=== PATIENT | male | born 1985 | race Caucasian/White ===

== ENCOUNTER 2024-01-04 05:49 | Inpatient (IN) | payer BC, SELFPAY ==
[2024-01-04] VITALS (10 sets, daily range): BP systolic 127–163; BP diastolic 89–108; BMI 19.5; BMI 19.0
[2024-01-04 03:10] LABS: % Basophils 0.5 % (0-2); % Eosinophils 2.6 % (0-6); % Immature Granulocytes 0.4 % (0-0.5); % Lymphocytes 45.8 % (20.5-51.1); % Monocytes 4.6 % (1.7-9.3); % Neutrophils 46.1 % (42.2-75.2); Absolute Eosinophils 0.2 10^3/uL (0-0.7); Absolute Lymphocytes 3.9 10^3/uL (1.2-3.4); Absolute Monocytes 0.4 10^3/uL (0.1-0.6); Absolute Neutrophils 3.9 10^3/uL (1.4-6.5); Hematocrit 42.3 % (39.0-52.0); Hemoglobin 14.9 g/dL (13.0-18.0); Mean Corp Hgb Conc. 35.2 g/dL (33.0-37.0); Mean Corpuscular Hgb 30.6 pg (27.0-31.0); Mean Corpuscular Volume 86.9 fL (80.0-94.0); Mean Platelet Volume 11.4 fL (7.4-10.4); Nucleated Red Blood Cells % 0 % (-); Platelet Count 240 10^3/uL (130-400); Red Blood Cell Count 4.87 10^6/uL (4.70-6.10); Red Cell Dist. Width 12.3 % (11.5-14.5); White Blood Cell Count 8.5 10^3/uL (4.8-10.8)
[2024-01-04 03:25] LABS: ALT (SGPT) 26 U/L (0-50); AST (SGOT) 28 U/L (17-59); Albumin 4.9 g/dl (3.5-5.0); Alkaline Phosphatase 56 U/L (38-126); Blood Urea Nitrogen 12 mg/dl (9-20); Calcium 9.2 mg/dl (8.4-10.2); Carbon Dioxide 24 mmol/L (22-30); Chloride 106 mmol/L (98-107); Estimated Creatinine Clearance 112 ml/min; Glucose 185 mg/dl (70-99); Potassium 3.7 mmol/L (3.5-5.1); Sodium 143 mmol/L (135-145); Total Bilirubin 0.6 mg/dl (0.2-1.3); Total Protein 7.7 g/dl (6.3-8.2); eGFR > 60.00
--- NOTE | 2024-01-04 03:31 | ED.GENMED ---
History of Present Illness
General
Chief Complaint: Abdominal Pain
Time Seen by Provider: 01/04/24 03:01
History of Present Illness
History of Present Illness:
38-year-old male without significant past medical history presenting for acute onset of abdominal pain. Patient reports symptoms started prior to arrival while he was sleeping. Reports associated nausea and vomiting. Pain is diffuse in nature.
Denies any changes in stool. Reports that he was drinking last night about 6 beers. Denies any associated chest pain or difficulty breathing. Denies any extensive alcohol abuse. Denies any abdominal surgeries. Denies any fever or sick contacts.
Denies additional acute medical complaints
Phy Exam
Physical Exam
Physical Exam:
General: Well-appearing, no clinical signs of dehydration, nontoxic and in no acute distress
HEENT: protecting airway
Neck: appears supple
CV: Normal heart rate, regular rhythm, no evidence of cyanosis
Resp: No accessory muscle use, no increased work of breathing, lungs clear to auscultation bilaterally
Abd: Soft and non-distended, no focal reproducible tenderness
Extremities: No deformities, no swelling, no erythema
Neuro: alert, no focal neurologic deficit
: deferred
Rectal: deferred
Psych: Normal affect
Skin: Intact
Course
Orders/Labs/Results
Orders:
Orders
01/04/24 02:54
Electrocardiogram (*1) Urgent
Reason for Study: Abdominal Pain
EKG- Treatment ONCE
IV Insert/Care/Rem.- Treatment PRN
01/04/24 03:01
Complete Blood Count/With Diff Urgent
Comprehensive Metabolic Panel Urgent
Lipase Urgent
01/04/24 03:09
0.9% Sodium Chloride 1000 ml [Nss] 1,000 ml IV BOLUS
Ketorolac [Toradol] 15 mg IV NOW STA
Ondansetron Injectable [Zofran] 4 mg IV NOW STA
01/04/24 03:10
CT Abd/pelvis W Iv Cont Urgent
Comment:
Reason For Exam: generalized pain, vomiting
01/04/24 03:43
Morphine Sulfate 4 mg IV NOW STA
01/04/24 04:47
US Abdomen Limited Urgent
Comment:
Reason For Exam: RUQ, pancreatitis, gallstones
Abnormal Lab Results
01/04/24
03:01
MPV 11.4 H fL
(7.4-10.4)
Absolute Lymphs (auto) 3.9 H 10^3/uL
(1.2-3.4)
Glucose 185 H mg/dl
(70-99)
Lipase > 4000 H* U/L
(23-300)
01/04/24 03:01
01/04/24 03:01
Vital Signs
Initial and Last Documented VS:
Initial Vital Signs
Temp Pulse Resp BP Pulse Ox
97.7 F 109 12 163/108 95
01/04/24 02:53 01/04/24 02:53 01/04/24 02:53 01/04/24 02:53 01/04/24 02:53
Last Documented Vital Signs
Temp Pulse Resp BP Pulse Ox
97.7 F 109 13 143/102 96
01/04/24 02:53 01/04/24 03:30 01/04/24 03:30 01/04/24 03:00 01/04/24 03:30
MDM/Problems Addressed
MDM/Problems Addressed:
38-year-old male presenting for acute onset of generalized abdominal pain. Vital signs significant for tachycardia and hypertension.
On exam, patient is in no acute distress, however uncomfortable secondary to pain. On examination, no focal reproducible tenderness. Possible enteritis versus pancreatitis with report of alcohol last evening. Given acute onset of symptoms and
patient's discomfort, plan for laboratory analysis and CT abdomen imaging. Patient had received fentanyl prior to arrival by medics. Will administer Toradol, fluids, Zofran.
03:45 - Patient is still uncomfortable, will administer morphine.
04:50 -pain is better controlled. Lipase greater than 4000. CT shows acute edematous pancreatitis without necrosis or fluid collection. There is also evidence of cholelithiasis. No leukocytosis. No elevation of liver enzymes. Will obtain
ultrasound imaging to ensure no acute cholecystitis. However continue to suspect from alcohol. Plan for admission.
*Critical Care Note
Total Time (30-74mins, 75-104mins- exclusive of procedures): Not Applicable
ED Attending Note
-
Portions of this chart may have been created with voice recognition software.� Occasional wrong word or��sound alike� substitutions may have occurred due to the inherent limitations of voice recognition software.
Discharge Plan
Departure
Prescriptions:
No Action
No Current Medications
0
Referrals:
PRIVATE,PHYSICIAN [Family Provider] -
Interventions
Interventions:
*Risk Screen - Suicide Last Done: 01/04/24 02:53
*General Assessment Last Done: 01/04/24 02:53
*Neglect/Abuse Screening Last Done: 01/04/24 02:53
ED- Fall Risk Assessment Last Done: 01/04/24 02:53
[facility]-Uogxlqb[facility] Assessment Last Done: 01/04/24 03:00
Discharge Date and Time
Print Language: IRISH
[2024-01-04] MEDS: NSS 1000 IV (03:34)
[2024-01-04] MEDS: TORADOL 15 MG IV (03:34)
[2024-01-04] MEDS: ZOFRAN 4 MG IV ×3 (03:35→15:12)
[2024-01-04] MEDS: MORPHINE SULFATE 4 MG IV (03:48)
[2024-01-04 03:53] LABS: Lipase > 4000 U/L (23-300)
--- NOTE | 2024-01-04 04:57 | HPS.HSE ---
Addendum entered and electronically signed by Rob Wilde MD 01/04/24 18:46:
CT Abd/pelvis W Iv Cont
1. Acute interstitial edematous pancreatitis without overt complication.
2. Possible cholelithiasis.
Addendum entered and electronically signed by Rob Wilde MD 01/04/24 13:55:
US Abdo limited
1. No sonographic evidence for cholelithiasis or biliary obstruction.
2. Acute pancreatitis.
Original Note:
Family Physician
-
Family Physician: PHYSICIAN PRIVATE
Chief Complaint
-
diffuse abdomen pain
History of Present Illness
38M without significant PMHx seen at ER for evalaution fo abdominal pain
Acute diffuse abdominal pain more at upper abdomenal
- abrupt onset of pain wake him up from the sleep
- nausea on arrival
- received 100mcg of fentanyl and Zofran
- ETOH; he drank about 6 cans of beer last night but eenies any extensive alcohol abuse.
- No prior HX pancreatitis
- Denies any abdominal surgeries.
Medical History
Past Medical History
Past Medical History: Reports None
Past Surgical History: Reports None
Social History
Tobacco: Vaping
Alcohol: Binge drinker (drank 6 cans of beer last night )
Living: With Roomate
Family History
Family History: Not pertinent
Allergies / Home Medications
Allergies reflects when Allergies were last updated in [employer].
Home Medications with original date entered in [employer]
Allergy/Medication List:
Allergies
Allergy/AdvReac Type Severity Reaction Status Date / Time
No Known Allergies Allergy Unverified 01/04/24 02:52
Home Medications
No Meds [No Current Medications] 01/04/24
Review of Systems
-
Constitutional: Reports No Symptoms
EENT: Reports No Symptoms
Respiratory: Reports No Symptoms
Cardiac: Reports No Symptoms
Abdomen/GI: Reports Abdominal Pain and Nausea; Denies Vomiting or Diarrhea
: Reports No Symptoms and See HPI
Musculoskeletal: Reports No Symptoms
Skin: Reports No Symptoms
Neurological: Reports No Symptoms
Endocrine: Reports No Symptoms
Hematologic/Lymphatic: Reports No Symptoms
Psych: Reports No Symptoms
Physical Exam
Vital Signs
Vital Signs
Temp Pulse Resp BP Pulse Ox
97.7 F 109 13 143/102 96
01/04/24 02:53 01/04/24 03:30 01/04/24 03:30 01/04/24 03:00 01/04/24 03:30
Physical Exam
General: Conversant and Pain (in upper abdomen ); No Appears in Distress
HEENT: NormoCephalic, Anicteric and Moist mucous membranes (dry OM )
Respiratory: Clear; No Wheezes, Rales or Rhonchi
Cardiac: S1/S2 and Regular Rhythm
Breast: Deferred by me
GI: Soft and Tender (upper abdomen . No guarding . No rebound tenderness )
Genito-urinary: Deferred by me
Musculoskeletal: No Cyanosis
Skin: Warm, Dry and Other (extensively tatooed skin )
Neuro: AO x 3 and Nonfocal/grossly intact
Psych: Calm (very pleasant ) and Intact Judgment/Insight
Laboratory Results
-
01/04/24 03:01
01/04/24 03:01
Laboratory Results
Total Bilirubin 0.6 mg/dl (0.2-1.3) 01/04/24 03:01
AST 28 U/L (17-59) 01/04/24 03:01
ALT 26 U/L (0-50) 01/04/24 03:01
Alkaline Phosphatase 56 U/L (38-126) 01/04/24 03:01
Lipase > 4000 U/L (23-300) H* 01/04/24 03:01
Data Reviewed
-
Diagnostic Radiology: Discussed with Physician
CT Scan: Discussed with Physician
Ultrasound: Other (pending US )
Lab Data: Labs Reviewed by me
Impression/Plan
-
Reviewed VS: Afebrile HR 110 140/100
Data
nl CBC
nl BMP
BG 185
nl LFts
Lipase > 4000
EKG
SINUS TACHYCARDIA WITH 1ST DEGREE A-V BLOCK
OTHERWISE NORMAL ECG
NO PREVIOUS ECGS AVAILABLE
CT AP - acute edematous pancreatitis.
Pending US abdomen
NO PRIOR hospitalist or admission:
ASSESSMENT & PLAN
Acute pancreatitis with clinical , biochemical and CT evidence
Provoked by likely ETOH Less likely gallstone
Nl LFTs
- LR IVF 250 cc/H
- IV Dilaudid PRN
- IV Anti emetics PRN
- Cessation of ETOH
- US Abdomen to complete w/u
- KOLBY, Lipids
- GI consult
Possible binge ETOH over the week ends - use disorder ?
Denied daily ETOH use
nl MCV
- check GGT
- low risk for ETOH WDS
DVT Px: SCD
Code: Full code
IP MS
[2024-01-04 05:45] LABS: GGTP 17 U/L (15-73); HDL Cholesterol 42 mg/dl; LDL Cholesterol, Calculated 115 mg/dl; Total Cholesterol 204 mg/dl (50-199); Triglyceride 237 mg/dl (10-149); Very Low Density Lipoprotein 47 mg/dl (0-30)
[2024-01-04] MEDS: DILAUDID 0.5 MG IV (06:00)
--- NOTE | 2024-01-04 07:53 | W.PN.HOSP.TC ---
Today's Communication/Plan
-
IVF
bowel rest
trend Lipase
pain control
prn antiemetic
Assessment / Plan
Assessment / Plan
Physical Exam
General: no acute distress appears comfortable
HEENT: NormoCephalic, Anicteric and Moist mucous membranes
Respiratory: Clear; No Wheezes, Rales or Rhonchi
Cardiac: S1/S2 and Regular Rhythm
GI: Soft Tender decreased bowel sounds
Musculoskeletal: No Cyanosis
Skin: Warm, Dry, extensively tattooed skin
Neuro: AO x 3 and Nonfocal/grossly intact
Psych: Calm
Acute pancreatitis with clinical , biochemical and CT evidence
Provoked by likely ETOH Less likely gallstone
Nl LFTs
- LR IVF 250 cc/H
- IV Dilaudid PRN
- IV Anti emetics PRN
- ETOH abstinence advised
- KOLBY
-Lipid panel appreciated Hyperlipidemia
- GI consult appreciated
CT Abd/pelvis W Iv Cont
1. Acute interstitial edematous pancreatitis without overt complication.
2. Possible cholelithiasis.
US Abd limited
1. No sonographic evidence for cholelithiasis or biliary obstruction.
2. Acute pancreatitis.
DVT Px: SCD
Code: Full code
IP MS
I spent a total of 50 minutes with the patient or on the floor. More than 50% of this time involved counseling and coordination of care.
Anticipated Discharge: 24 - 48 hours
Subjective/Interval History
-
Date of Service: January 04, 2024
Seen and examined at bedside in no acute distress resting comfortably in bed. Continues to report abd pain with intermittent nausea tolerable with current pain regimen.
Objective Data
-
Labs:
Laboratory Results
01/04/24
03:01
WBC 8.5
Hgb 14.9
Hct 42.3
Plt Count 240
Sodium 143
Potassium 3.7
Chloride 106
Carbon Dioxide 24
BUN 12
Creatinine 1.0
Glucose 185 H
Calcium 9.2
Total Bilirubin 0.6
AST 28
ALT 26
Alkaline Phosphatase 56
Vital Signs:
Vital Signs
Temp Pulse Resp BP Pulse Ox
97.7 F 80 20 131/98 94
01/04/24 02:53 01/04/24 07:29 01/04/24 07:29 01/04/24 07:29 01/04/24 07:29
[2024-01-04] MEDS: LR 1000 IV ×5 (08:07→23:23)
[2024-01-04] MEDS: TORADOL 30 MG IV (08:21)
[2024-01-04] MEDS: NSS (PRESERVATIVE FREE) 10 ML IV (09:10)
[2024-01-04] MEDS: PROTONIX IV 40 MG IV (09:11)
[2024-01-04] MEDS: DILAUDID 1 MG IV ×3 (10:48→20:17)
--- NOTE | 2024-01-04 12:17 | CON.GI ---
Addendum entered and electronically signed by Lori Stoddard MD 01/04/24 16:44:
I saw and examined the patient.
The RESEARCH SCIENTIST's note was reviewed and I agree with the note.
Acute interstitial pancreatitis-first episode. Likely etiology alcohol. Triglyceride mildly elevated. Liver test normal. Ultrasound abdomen�no biliary dilatation/cholelithiasis
plan
N.p.o.
Continue IV fluid
Pain management as per medical team
Advised on alcohol abstinence
Original Note:
Consultation
-
Date/Time Consultation Requested: 01/04/24 0748
Date/Time Consultation Performed: 01/04/24 1200
Requesting Provider: Dr. Wilde
Performing Provider: Dr. Stoddard/DYANA Schmitz
Reason for Consultation: pancreatitis
Medical History
Chief Complaint / HPI
Chief Complaint: abd pain
History of Present Illness:
38-year-old male with past medical history of ADHD currently not on any medications presents to the emergency room with acute onset of abdominal pain as well as nausea and vomiting. Asked to evaluate for pancreatitis. The patient states that last
evening he was out for work function and drank 4 beers as well as a couple margaritas. He woke up approximately 2 AM with acute onset of periumbilical abdominal pain which he describes as dull, with out any signs of radiation, nausea, vomiting that
was bilious in nature because of persistence and elevation of pain he proceeded to come to the emergency room. The patient denies any fevers, chills, melena, hematochezia, acholic stools or bilirubinuria. The patient quit smoking approximately 3
months ago. He was on medications for ADHD however stopped those approximately 2 months ago. He does not take any NSAIDs. He does drink approximately 3 times a week and at that time he would usually drink approximately 4-6 drinks at a time. He
does not take any supplements. He has never had any episodes like this in the past. He has no family history of pancreatitis. He has no family history of GI malignancy or IBD. He has no history of known elevated LFTs or hepatitis. He has no
surgical history except for wisdom teeth extraction. At the present time he is receiving IV fluids at 200 cc an hour. Pain is still present. He has stopped vomiting. WBC 8.5, hemoglobin 14.9, hematocrit 42.3, platelets 240, sodium 143, potassium
3.7, BUN 12, creatinine 1.0, glucose 185, total bilirubin 0.6, AST 28, ALT 26, alk phos 56, triglycerides 237, lipase greater than 4000, IgG4 subclasses pending. CT of the abdomen pelvis with IV contrast shows acute interstitial edematous
pancreatitis without complication. Possible cholelithiasis. Ultrasound of the abdomen shows no abnormal gallbladder distention, thickening or pericholecystic fluid. Normal bile ducts. No cholelithiasis. Acute pancreatitis was seen.
Past Medical History
Past Medical History: Other (ADHD)
Past Surgical History: Other (wisdom teeth)
Social History
Tobacco: Former Smoker
Alcohol: Binge Drinker (Approximately 3 times a week, will drink approximately 4-6 drinks at a time)
Drug: None
Family History
Family History: Other (No family history of GI malignancy, pancreatitis or IBD)
Allergies / Home Medications
Allergy/AdvReac Type Severity Reaction Status Date / Time
No Known Allergies Allergy Unverified 01/04/24 02:52
�Medication �Instructions �Recorded
No Meds [No Current Medications] 01/04/24
Review of Systems
-
All other systems: A 12 pt ROS was Negative except as stated above in HPI
Vital Signs
Temp Pulse Resp BP Pulse Ox
98.8 F 78 20 127/92 96
01/04/24 07:55 01/04/24 07:55 01/04/24 07:55 01/04/24 07:55 01/04/24 07:55
Physical Exam
Exam
General: No Apparent Distress
HEENT: Anicteric
Respiratory: Clear
Cardiac: Regular Rhythm
GI: Soft, Non Distended, Normal Bowel Sounds and Tender (Periumbilical tenderness)
Musculoskeletal: No Edema
Skin: Warm and Dry
Neuro: AO x 3
Psych: Calm
Results
WBC 8.5 10^3/uL (4.8-10.8) 01/04/24 03:01
Hgb 14.9 g/dL (13.0-18.0) 01/04/24 03:01
Hct 42.3 % (39.0-52.0) 01/04/24 03:01
MCV 86.9 fL (80.0-94.0) 01/04/24 03:01
Plt Count 240 10^3/uL (130-400) 01/04/24 03:01
Absolute Neuts (auto) 3.9 10^3/uL (1.4-6.5) 01/04/24 03:01
Sodium 143 mmol/L (135-145) 01/04/24 03:01
Potassium 3.7 mmol/L (3.5-5.1) 01/04/24 03:01
Chloride 106 mmol/L (98-107) 01/04/24 03:01
Carbon Dioxide 24 mmol/L (22-30) 01/04/24 03:01
BUN 12 mg/dl (9-20) 01/04/24 03:01
Creatinine 1.0 mg/dL (0.7-1.3) 01/04/24 03:01
Calcium 9.2 mg/dl (8.4-10.2) 01/04/24 03:01
Total Bilirubin 0.6 mg/dl (0.2-1.3) 01/04/24 03:01
AST 28 U/L (17-59) 01/04/24 03:01
ALT 26 U/L (0-50) 01/04/24 03:01
Alkaline Phosphatase 56 U/L (38-126) 01/04/24 03:01
Lipase > 4000 U/L (23-300) H* 01/04/24 03:01
Diagnostic Image Results:
CT of the abdomen and pelvis with IV contrast 01/04/2024:
IMPRESSION:
1. Acute interstitial edematous pancreatitis without overt complication.
2. Possible cholelithiasis.
Up-to-date CT equipment and radiation dose reduction techniques were employed. CTDIvol: 7.9 - 10.8 mGy. DLP: 516 mGy-cm.
Electronically signed by Tian Gonzalez, 01/04/2024 9:00 AM
US Abd:
IMPRESSION:
1. No sonographic evidence for cholelithiasis or biliary obstruction.
2. Acute pancreatitis.
Electronically signed by Shivam Arias MD, 01/04/2024 6:43 AM
Prior GI Procedures:
EGD: Never
Colonoscopy: Never
Assessment / Plan
-
38-year-old male with past medical history of ADHD not on any current medications with no other significant past medical history former smoker quit 3 months ago. Who presents to the emergency room with acute onset of nausea, vomiting and diffuse
periumbilical pain after binge drinking. Imaging shows pancreatitis on CT as well as ultrasound. Mildly elevated triglycerides, not significant elevated enough to cause pancreatitis. Gallstones seen on imaging of ultrasound. No LFT abnormality,
no CBD dilatation. No other medications, substances concerning for medication induced. IgG4 subclasses pending.
Impression:
Pancreatitis, first episode�> likely secondary to alcohol
Plan:
-Continue IV fluids currently at 200 cc an hour
-N.p.o. at present time, discussed with patient as pain decreases we will consider adding clear liquids and then advance as diet to low-fat as tolerated
-CBC, CMP, lipase in a.m.
-Incentive spirometer
-Discussed avoidance of alcohol
-IgG4 subclasses pending
-Continue analgesia
-Further recommendations to be forthcoming
-
-
Thank you for consultation and allowing me to participate in the patient's care. Please call the electronic heat seal operator GI physician during the after hours with any questions or concerns.
--- NOTE | 2024-01-04 14:23 | CM ---
Alert awake oriented patient who lives with his friends Mily and Cachorro. in a 2 story home with 6 step to enter and 4 steps to bed and bathroom. He is independent in driving and in all activities of daily living.He was offered VN he declined need.
No VN hx / No SNF history
Pharmacy [facility]
PCP [facility] Dr Melinda Cabrales
PLAN Home Declined VN
--- NOTE | 2024-01-04 16:08 | PTCARENOTE ---
Patient admitted to room 401-02 from the ER. Complaints of pain. Hospitalist contacted and one time dose of Toradol IV given. IVF started - LR at 250 mls/hour. Zofran given for nausea. Reviewed plan of care with patient. Reviewed use of call chris
and use of television and bed controls. Patient verbalizes understanding of all teaching. Vital signs stable.
--- NOTE | 2024-01-04 19:40 | PTCARENOTE ---
Patient states that pain is 'better' in abdomen with dilaudid 1 mg IV. IVF maintained - LR at 250 mls/hour. BP with slight elevation today, but patient in pain. Patient appears more comfortable at this time. Complains of generalized body aches.
[2024-01-04] MEDS: TYLENOL 650 MG PO (19:52)
[2024-01-04] MEDS: FLUSH (NSS) 1 FLUSH IV (20:18)
[2024-01-05] MEDS: FLUSH (NSS) 1 FLUSH IV (00:19)
[2024-01-05] MEDS: DILAUDID 1 MG IV ×4 (00:19→11:01)
[2024-01-05] MEDS: LR 1000 IV ×5 (03:45→21:01)
[2024-01-05 06:00] VITALS: BMI 19.9
[2024-01-05 07:51] VITALS: BP 157/100
[2024-01-05] MEDS: NSS (PRESERVATIVE FREE) 10 ML IV (07:52)
[2024-01-05] MEDS: PROTONIX IV 40 MG IV (07:52)
--- NOTE | 2024-01-05 07:53 | W.PN.HOSP.TC ---
Today's Communication/Plan
-
pain control
IVF support
clear liquid diet as per GI
trend Lipase
Assessment / Plan
Assessment / Plan
Physical Exam
General: no acute distress appears comfortable
HEENT: NormoCephalic, Anicteric and Moist mucous membranes
Respiratory: Clear; No Wheezes, Rales or Rhonchi
Cardiac: S1/S2 and Regular Rhythm
GI: Soft Tender decreased bowel sounds
Musculoskeletal: No Cyanosis
Skin: Warm, Dry, extensively tattooed skin
Neuro: AO x 3 and Nonfocal/grossly intact
Psych: Calm
Acute pancreatitis with clinical , biochemical and CT evidence
Provoked by likely ETOH Less likely gallstone
Nl LFTs
- LR IVF 250 cc/H
- pain medications adjusted IV Tylenol scheduled, Toradol Mod Severe pain, Dilaudid for severe breakthrough pain
- IV Anti emetics PRN
- ETOH abstinence advised
- KOLBY
-Lipid panel appreciated Hyperlipidemia
- GI consult appreciated diet advanced to clear liquid
CT Abd/pelvis W Iv Cont
1. Acute interstitial edematous pancreatitis without overt complication.
2. Possible cholelithiasis.
US Abd limited
1. No sonographic evidence for cholelithiasis or biliary obstruction.
2. Acute pancreatitis.
DVT Px: SCD
Code: Full code
IP MS
discussed with patient, patient's father Ulises, and patient's sister Shannan [phone]
I spent a total of 50 minutes with the patient or on the floor. More than 50% of this time involved counseling and coordination of care.
Anticipated Discharge: 24 - 48 hours
Subjective/Interval History
-
Date of Service: January 05, 2024
pain improving.
Objective Data
-
Labs:
Laboratory Results
01/05/24
06:56
WBC Pending
Hgb Pending
Hct Pending
Plt Count Pending
Sodium Pending
Potassium Pending
Chloride Pending
Carbon Dioxide Pending
BUN Pending
Creatinine Pending
Glucose Pending
Calcium Pending
Total Bilirubin Pending
AST Pending
ALT Pending
Alkaline Phosphatase Pending
Vital Signs:
Vital Signs
Temp Pulse Resp BP Pulse Ox
100 F 88 20 157/100 98
01/05/24 07:51 01/05/24 07:51 01/05/24 07:51 01/05/24 07:51 01/05/24 07:51
I&O
01/04/24 01/05/24 01/06/24
06:59 06:59 06:59
Intake Total 5000 / 5000
Output Total 1000 / 1000
Balance 4000 / 4000
[2024-01-05 08:00] LABS: Hemoglobin 14.3 g/dL (13.0-18.0); Mean Corp Hgb Conc. 35.8 g/dL (33.0-37.0); Mean Corpuscular Volume 86.8 fL (80.0-94.0); Platelet Count 145 10^3/uL (130-400); Red Blood Cell Count 4.61 10^6/uL (4.70-6.10); Red Cell Dist. Width 12.7 % (11.5-14.5)
[2024-01-05] MEDS: ZOFRAN 4 MG IV (08:02)
[2024-01-05 09:19] LABS: ALT (SGPT) 17 U/L (0-50); AST (SGOT) 25 U/L (17-59); Albumin 3.6 g/dl (3.5-5.0); Alkaline Phosphatase 49 U/L (38-126); Blood Urea Nitrogen 8 mg/dl (9-20); Calcium 8.6 mg/dl (8.4-10.2); Carbon Dioxide 29 mmol/L (22-30); Chloride 100 mmol/L (98-107); Estimated Creatinine Clearance > 125 ml/min; Glucose 113 mg/dl (70-99); Magnesium 1.5 mg/dl (1.6-2.3); Potassium 4.1 mmol/L (3.5-5.1); Sodium 135 mmol/L (135-145); Total Bilirubin 1.2 mg/dl (0.2-1.3); Total Protein 6.1 g/dl (6.3-8.2); eGFR > 60.00
[2024-01-05 09:51] LABS: Lipase 2534 U/L (23-300)
[2024-01-05] MEDS: MAGNESIUM SULFATE 100 IV (12:41)
--- NOTE | 2024-01-05 13:51 | W.PN.GI.CBS2 ---
Today's Communication / Plan
-
Clear liquid diet
Assessment / Plan
-
38-year-old male with past medical history of ADHD not on any current medications with no other significant past medical history former smoker quit 3 months ago. Who presents to the emergency room with acute onset of nausea, vomiting and diffuse
periumbilical pain after binge drinking. Imaging shows pancreatitis on CT as well as ultrasound. Mildly elevated triglycerides, not significant elevated enough to cause pancreatitis. Gallstones seen on imaging of ultrasound. No LFT abnormality,
no CBD dilatation. No other medications, substances concerning for medication induced. IgG4 subclasses pending.
Acute interstitial pancreatitis-first episode. Likely etiology alcohol. Triglyceride mildly elevated. Liver test normal. Ultrasound abdomen�no biliary dilatation/cholelithiasis
plan
Patient claims his pain is better. He will try clear liquid diet later today
Continue IV fluid for now. If tolerating diet okay to cut down tomorrow
Pain management as per medical team. advice to minimize opioids
IgG4 pending
Alcohol abstinence in the future
Discussed with patient's family-father/daughter
Total Time Spent with Patient (in minutes): 35
Subjective
Subjective
Date of Service: January 05, 2024
Abdominal pain is better but still there. Denies any nausea or vomiting.
Objective
Data Reviewed
Laboratory Data:
Laboratory Results
01/05/24 06:56
01/05/24 06:56
Laboratory Results
Phosphorus 3.0 mg/dl (2.5-4.5) 01/05/24 06:56
Magnesium 1.5 mg/dl (1.6-2.3) L 01/05/24 06:56
Total Bilirubin 1.2 mg/dl (0.2-1.3) 01/05/24 06:56
AST 25 U/L (17-59) 01/05/24 06:56
ALT 17 U/L (0-50) 01/05/24 06:56
Alkaline Phosphatase 49 U/L (38-126) 01/05/24 06:56
Lipase 2534 U/L (23-300) H* 01/05/24 06:56
Vital Signs and I&O:
Vital Signs
Temp Pulse Resp BP Pulse Ox
100 F 88 20 157/100 98
01/05/24 07:51 01/05/24 07:51 01/05/24 07:51 01/05/24 07:51 01/05/24 07:51
I&O
01/04/24 01/05/24 01/06/24
06:59 06:59 06:59
Intake Total 5000 / 5000
Output Total 1000 / 1000
Balance 4000 / 4000
Physical Exam
Physical Exam
GI: Soft, Non Distended and Tender (Mild epigastric tenderness)
[2024-01-05 15:00] VITALS: BP 154/98
--- NOTE | 2024-01-05 15:05 | CM ---
Advanced diet to clear .
Ambulating in room .
Offered Vn he declined need at dc.
Friends to drive him home.
PLAN Home no needs
[2024-01-05] MEDS: TORADOL 15 MG IV ×2 (16:01→23:27)
[2024-01-05] MEDS: OFIRMEV 100 IV ×2 (16:37→21:01)
[2024-01-05 23:27] VITALS: BP 149/94
[2024-01-05 23:57] LABS: IgG Subclass 4 84 mg/dL (1-123)
[2024-01-06] MEDS: LR 1000 IV ×6 (00:36→20:45)
[2024-01-06 01:00] LABS: ANA, IgG Reflex to HEp-2 None Detected (None Detected)
[2024-01-06] MEDS: DILAUDID 1 MG IV ×4 (04:24→23:26)
[2024-01-06 06:00] VITALS: BMI 19.9
[2024-01-06 07:05] VITALS: BP 147/98
--- NOTE | 2024-01-06 07:06 | W.PN.HOSP.TC ---
Today's Communication/Plan
-
pain control
IVF support
clear liquid diet as per GI
trend Lipase
Assessment / Plan
Assessment / Plan
Physical Exam
General: no acute distress appears comfortable
HEENT: NormoCephalic, Anicteric and Moist mucous membranes
Respiratory: Clear; No Wheezes, Rales or Rhonchi
Cardiac: S1/S2 and Regular Rhythm
GI: Soft Tender decreased bowel sounds
Musculoskeletal: No Cyanosis
Skin: Warm, Dry, extensively tattooed skin
Neuro: AO x 3 and Nonfocal/grossly intact
Psych: Calm
Acute pancreatitis with clinical , biochemical and CT evidence
Provoked by likely ETOH Less likely gallstone
Hyperlipidemia
Nl LFTs
- LR IVF 250 cc/H
- pain medications adjusted IV Tylenol scheduled, Toradol Mod Severe pain, Dilaudid for severe breakthrough pain
- IV Anti emetics PRN
- ETOH abstinence advised
- KOLBY neg
-Lipid panel appreciated Hyperlipidemia, low fat diet recommended
- GI consult appreciated diet advanced to clear liquid cont IVF until PO intake improves
CT Abd/pelvis W Iv Cont
1. Acute interstitial edematous pancreatitis without overt complication.
2. Possible cholelithiasis.
US Abd limited
1. No sonographic evidence for cholelithiasis or biliary obstruction.
2. Acute pancreatitis.
DVT Px: SCD
Code: Full code
IP MS
discussed with patient and patient's sister Shannan [phone]
I spent a total of 50 minutes with the patient or on the floor. More than 50% of this time involved counseling and coordination of care.
Anticipated Discharge: 24 - 48 hours
Subjective/Interval History
-
Date of Service: January 06, 2024
Pain continues to improve but not resolved. Tolerating clear liquid diet but low appetite at this time.
Objective Data
-
Labs:
Laboratory Results
01/06/24
06:00
WBC Pending
Hgb Pending
Hct Pending
Plt Count Pending
Sodium Pending
Potassium Pending
Chloride Pending
Carbon Dioxide Pending
BUN Pending
Creatinine Pending
Glucose Pending
Calcium Pending
Total Bilirubin Pending
AST Pending
ALT Pending
Alkaline Phosphatase Pending
Vital Signs:
Vital Signs
Temp Pulse Resp BP Pulse Ox
99.9 F 93 18 149/94 97
01/05/24 23:27 01/05/24 23:27 01/05/24 23:27 01/05/24 23:27 01/05/24 23:27
I&O
01/05/24 01/06/24 01/07/24
06:59 06:59 06:59
Intake Total 5000 / 5000 5840 / 5840
Output Total 1000 / 1000
Balance 4000 / 4000 5840 / 5840
[2024-01-06 08:13] LABS: Hematocrit 37.3 % (39.0-52.0); Hemoglobin 13.4 g/dL (13.0-18.0); Mean Corp Hgb Conc. 35.9 g/dL (33.0-37.0); Mean Corpuscular Hgb 30.6 pg (27.0-31.0); Mean Corpuscular Volume 85.2 fL (80.0-94.0); Mean Platelet Volume 11.1 fL (7.4-10.4); Platelet Count 139 10^3/uL (130-400); Red Blood Cell Count 4.38 10^6/uL (4.70-6.10); Red Cell Dist. Width 12.8 % (11.5-14.5); White Blood Cell Count 14.4 10^3/uL (4.8-10.8)
[2024-01-06] MEDS: OFIRMEV 100 IV (08:15)
[2024-01-06] MEDS: TORADOL 15 MG IV ×2 (08:19→20:43)
[2024-01-06] MEDS: NSS (PRESERVATIVE FREE) 10 ML IV (08:21)
[2024-01-06] MEDS: PROTONIX IV 40 MG IV (08:22)
[2024-01-06] MEDS: MIRALAX 17 GRAMS PO (08:26)
[2024-01-06 09:01] LABS: ALT (SGPT) 14 U/L (0-50); AST (SGOT) 21 U/L (17-59); Albumin 3.3 g/dl (3.5-5.0); Alkaline Phosphatase 57 U/L (38-126); Blood Urea Nitrogen 6 mg/dl (9-20); Calcium 8.7 mg/dl (8.4-10.2); Carbon Dioxide 30 mmol/L (22-30); Chloride 102 mmol/L (98-107); Estimated Creatinine Clearance > 125 ml/min; Glucose 109 mg/dl (70-99); Lipase 1245 U/L (23-300); Magnesium 1.9 mg/dl (1.6-2.3); Phosphorus 2.2 mg/dl (2.5-4.5); Potassium 4.1 mmol/L (3.5-5.1); Sodium 135 mmol/L (135-145); Total Bilirubin 1.4 mg/dl (0.2-1.3); Total Protein 5.8 g/dl (6.3-8.2); eGFR > 60.00
--- NOTE | 2024-01-06 11:18 | W.PN.GI.CBS2 ---
Today's Communication / Plan
-
Continue IVF, ADAT, bowel regimen, antiemetics/analgesia prn.
Assessment / Plan
-
38 y.o. male with pmhx ADHD admitted with first episode of acute uncomplicated pancreatitis, likely 2/2 EtoH use.
Acute interstitial pancreatitis
-1st episode
-US shows findings of acute pancreatitis, evidence of cholelithiasis w/o abnormal GB distension, GB Wall thickening or pericholecystic fluid. CBD measures 3 mm; mild diffuse enlargement of the pancreas 2/2 edema and inflammation, no PD dilatation
-suspect EtOH pancreatitis and not 2/2 gallstones; no evidence of biliary obstruction
-mild leukocytosis with mild elevation in total bilirubin, 0.6 --> 1.2 --> 1.4, if continues to rise, will recommend MRCP, however, can hold off at this time
-no signs of cholangitis at this time
-Lipase >4000 --> 2534 --> 1245
-Trig 237
-IgG4 pending
-c/w IVF, will recommend decreasing rate once tolerating a little more PO
-analgesia, antiemetics, prn
-replete electrolytes
-ADAT
-bowel regimen
-etoh abstinence
Subjective
Subjective
Date of Service: January 06, 2024
Patient tolerating clear liquid diet, still having significant amount of pain. White count with mild increase overnight from 13-14.4. Lipase 1245, initially >4000. He is passing gas but has not moved his bowels.
Objective
Data Reviewed
Laboratory Data:
Laboratory Results
01/06/24 07:41
01/06/24 07:41
Laboratory Results
Phosphorus 2.2 mg/dl (2.5-4.5) L 01/06/24 07:41
Magnesium 1.9 mg/dl (1.6-2.3) 01/06/24 07:41
Total Bilirubin 1.4 mg/dl (0.2-1.3) H 01/06/24 07:41
AST 21 U/L (17-59) 01/06/24 07:41
ALT 14 U/L (0-50) 01/06/24 07:41
Alkaline Phosphatase 57 U/L (38-126) 01/06/24 07:41
Lipase 1245 U/L (23-300) H* 01/06/24 07:41
Vital Signs and I&O:
Vital Signs
Temp Pulse Resp BP Pulse Ox
99.6 F 94 16 147/98 98
01/06/24 07:05 01/06/24 07:05 01/06/24 07:05 01/06/24 07:05 01/06/24 07:05
I&O
01/05/24 01/06/24 01/07/24
06:59 06:59 06:59
Intake Total 5000 / 5000 5840 / 5840
Output Total 1000 / 1000
Balance 4000 / 4000 5840 / 5840
Physical Exam
Physical Exam
GENERAL: In no acute distress, appears comfortable
ABDOMEN: +BS; soft, nondistended; TTP in epigastrium and RUQ, no rebound or guarding
[2024-01-06] MEDS: SODIUM PHOSPHATE 255 MEQ IV (12:24)
[2024-01-06 15:04] VITALS: BP 142/91
[2024-01-06 23:05] VITALS: BP 144/96
[2024-01-07] MEDS: LR 1000 IV ×3 (00:20→08:41)
[2024-01-07] MEDS: TORADOL 15 MG IV ×2 (03:35→17:48)
[2024-01-07] MEDS: DILAUDID 1 MG IV ×4 (04:09→20:00)
[2024-01-07 07:10] VITALS: BP 151/91
[2024-01-07 07:15] LABS: Hematocrit 33.7 % (39.0-52.0); Hemoglobin 11.9 g/dL (13.0-18.0); Mean Corp Hgb Conc. 35.3 g/dL (33.0-37.0); Mean Corpuscular Hgb 30.7 pg (27.0-31.0); Mean Corpuscular Volume 86.9 fL (80.0-94.0); Mean Platelet Volume 12.2 fL (7.4-10.4); Platelet Count 145 10^3/uL (130-400); Red Blood Cell Count 3.88 10^6/uL (4.70-6.10); White Blood Cell Count 11.2 10^3/uL (4.8-10.8)
--- NOTE | 2024-01-07 07:38 | W.PN.HOSP.TC ---
Today's Communication/Plan
-
cont pain control
complete IVF
FLD advance to Low residue if tolerating
Assessment / Plan
Assessment / Plan
Physical Exam
General: no acute distress appears comfortable
HEENT: NormoCephalic, Anicteric and Moist mucous membranes
Respiratory: Clear; No Wheezes, Rales or Rhonchi
Cardiac: S1/S2 and Regular Rhythm
GI: Soft Tender decreased bowel sounds
Musculoskeletal: No Cyanosis
Skin: Warm, Dry, extensively tattooed skin
Neuro: AO x 3 and Nonfocal/grossly intact
Psych: Calm
Acute pancreatitis with clinical , biochemical and CT evidence
Provoked by likely ETOH Less likely gallstone
Hyperlipidemia
Nl LFTs
- LR IVF 250 cc/H compleed
- pain medications adjusted IV Tylenol scheduled, Toradol Mod Severe pain, Dilaudid for severe breakthrough pain
- IV Anti emetics PRN
- ETOH abstinence advised
- KOLBY neg
-Lipid panel appreciated Hyperlipidemia, low fat diet recommended
- GI consult appreciated diet advanced to FLD since signed off
CT Abd/pelvis W Iv Cont
1. Acute interstitial edematous pancreatitis without overt complication.
2. Possible cholelithiasis.
US Abd limited
1. No sonographic evidence for cholelithiasis or biliary obstruction.
2. Acute pancreatitis.
DVT Px: SCD
Code: Full code
IP MS
discussed with patient and patient's sister Shannan [phone]
I spent a total of 50 minutes with the patient or on the floor. More than 50% of this time involved counseling and coordination of care.
Anticipated Discharge: Within 24 hours
Subjective/Interval History
-
Date of Service: January 07, 2024
Pain continues to improve. Tolerating diet.
Objective Data
-
Labs:
Laboratory Results
01/07/24
06:00
WBC 11.2 H
Hgb 11.9 L
Hct 33.7 L
Plt Count 145
Sodium Pending
Potassium Pending
Chloride Pending
Carbon Dioxide Pending
BUN Pending
Creatinine Pending
Glucose Pending
Calcium Pending
Total Bilirubin Pending
AST Pending
ALT Pending
Alkaline Phosphatase Pending
Vital Signs:
Vital Signs
Temp Pulse Resp BP Pulse Ox
100.2 F 106 18 144/96 96
01/06/24 23:05 01/06/24 23:05 01/06/24 23:05 01/06/24 23:05 01/06/24 23:05
I&O
01/06/24 01/07/24 01/08/24
06:59 06:59 06:59
Intake Total 5840 / 5840 5035 / 5035
Balance 5840 / 5840 5035 / 5035
[2024-01-07 07:45] LABS: ALT (SGPT) 12 U/L (0-50); AST (SGOT) 20 U/L (17-59); Alkaline Phosphatase 61 U/L (38-126); Blood Urea Nitrogen 7 mg/dl (9-20); Calcium 8.6 mg/dl (8.4-10.2); Carbon Dioxide 25 mmol/L (22-30); Chloride 102 mmol/L (98-107); Estimated Creatinine Clearance > 125 ml/min; Glucose 91 mg/dl (70-99); Lipase 479 U/L (23-300); Magnesium 1.7 mg/dl (1.6-2.3); Phosphorus 2.4 mg/dl (2.5-4.5); Potassium 3.8 mmol/L (3.5-5.1); Sodium 135 mmol/L (135-145); Total Bilirubin 1.2 mg/dl (0.2-1.3); Total Protein 5.4 g/dl (6.3-8.2); eGFR > 60.00
[2024-01-07] MEDS: NSS (PRESERVATIVE FREE) 10 ML IV (08:42)
[2024-01-07] MEDS: TYLENOL 1000 MG PO ×3 (08:42→20:00)
[2024-01-07] MEDS: PROTONIX IV 40 MG IV (08:42)
[2024-01-07] MEDS: FLUSH (NSS) 1 FLUSH IV ×4 (08:43→17:48)
--- NOTE | 2024-01-07 10:07 | W.PN.GI.CBS2 ---
Today's Communication / Plan
-
advance to full liquids, continue to advance as tolerated. Analgesics, antiemetics, prn. Bowel regimen. EtoH abstinence. GI will sign off, please call with questions.
Assessment / Plan
-
38 y.o. male with pmhx ADHD admitted with first episode of acute uncomplicated pancreatitis, likely 2/2 EtoH use.
Acute interstitial pancreatitis
-1st episode
-US shows findings of acute pancreatitis, evidence of cholelithiasis w/o abnormal GB distension, GB Wall thickening or pericholecystic fluid. CBD measures 3 mm; mild diffuse enlargement of the pancreas 2/2 edema and inflammation, no PD dilatation
-suspect EtOH pancreatitis and not 2/2 gallstones; no evidence of biliary obstruction
-mild leukocytosis with mild elevation in total bilirubin, improving
-no signs of cholangitis at this time
-Lipase >4000 --> 2534 --> 1245 --> 479
-Trig 237
-IgG4 pending
-c/w IVF, will recommend decreasing rate once tolerating a little more PO
-analgesia, antiemetics, prn
-replete electrolytes
-ADAT
-bowel regimen
-etoh abstinence
GI will sign off, please call with questions.
Subjective
Subjective
Date of Service: January 07, 2024
Patient seen in follow-up, reports some improvement in pain since yesterday, able to go slightly longer without pain medication. He is tolerating clear liquids, he would like to try advancing to full liquids this morning.
Objective
Data Reviewed
Laboratory Data:
Laboratory Results
01/07/24 06:00
01/07/24 06:00
Laboratory Results
Phosphorus 2.4 mg/dl (2.5-4.5) L 01/07/24 06:00
Magnesium 1.7 mg/dl (1.6-2.3) 01/07/24 06:00
Total Bilirubin 1.2 mg/dl (0.2-1.3) 01/07/24 06:00
AST 20 U/L (17-59) 01/07/24 06:00
ALT 12 U/L (0-50) 01/07/24 06:00
Alkaline Phosphatase 61 U/L (38-126) 01/07/24 06:00
Lipase 479 U/L (23-300) H 01/07/24 06:00
Vital Signs and I&O:
Vital Signs
Temp Pulse Resp BP Pulse Ox
98.5 F 94 24 151/91 97
01/07/24 07:10 01/07/24 07:10 01/07/24 07:10 01/07/24 07:10 01/07/24 08:37
I&O
01/06/24 01/07/24 01/08/24
06:59 06:59 06:59
Intake Total 5840 / 5840 5035 / 5035
Balance 5840 / 5840 5035 / 5035
Physical Exam
Physical Exam
GENERAL: In no acute distress, appears comfortable
ABDOMEN: +BS; soft, nondistended; mild TTP in epigastrium and RUQ, no rebound or guarding, improved exam from yesterday
[2024-01-07] MEDS: MIRALAX 17 GRAMS PO (10:11)
--- NOTE | 2024-01-07 10:54 | CM ---
Patient seen at bedside with father present. Patient indicated that he was planning to go home with no needs. Patient father indicated that patient was not for discharge yet and that he may need VN. CM will continue to follow for discharge planning
needs.
Plan; home with no needs vs home with VN
[2024-01-07] MEDS: NEUTRA-PHOS POWDER PACKET 250 MG PO ×3 (12:36→20:00)
[2024-01-07] MEDS: LR IV (13:05)
[2024-01-07 15:16] VITALS: BP 147/95
--- NOTE | 2024-01-07 15:56 | PTCARENOTE ---
pt AAO x3, SHORT ; OOB in room/to BR; tll well. VSS. On room air- puls eox 100%. Abd soft, rounded, tender, pt c/o abd discomfort throughout; occ radiating to back; good effect with prn IV Dilaudid. Shi full liquid diet; appetite fair; to start
low residue for dinner. Pt reports small BM x1. No c/o N/V. Voiding in BR without difficulty. Resting in bed at present. Will continue to monitor.
--- NOTE | 2024-01-07 17:52 | PTCARENOTE ---
Pt reporting increased abd discomfort after attempting low residue diet; denies nausea. Toradol 15 mg IV given; will assess effectiveness.
[2024-01-07 23:21] VITALS: BP 142/97
[2024-01-08] MEDS: DILAUDID 1 MG IV ×2 (00:37→04:58)
[2024-01-08] MEDS: TORADOL 15 MG IV ×2 (03:56→10:25)
[2024-01-08 06:00] VITALS: BMI 19.6
[2024-01-08 06:36] LABS: Mean Corp Hgb Conc. 35.3 g/dL (33.0-37.0); Mean Corpuscular Hgb 31.1 pg (27.0-31.0); Mean Corpuscular Volume 88.1 fL (80.0-94.0); Mean Platelet Volume 11.1 fL (7.4-10.4); Platelet Count 152 10^3/uL (130-400); Red Blood Cell Count 3.86 10^6/uL (4.70-6.10); Red Cell Dist. Width 12.9 % (11.5-14.5); White Blood Cell Count 9.2 10^3/uL (4.8-10.8)
[2024-01-08 07:04] LABS: ALT (SGPT) 13 U/L (0-50); Albumin 3.2 g/dl (3.5-5.0); Alkaline Phosphatase 64 U/L (38-126); Blood Urea Nitrogen 10 mg/dl (9-20); Calcium 8.5 mg/dl (8.4-10.2); Carbon Dioxide 27 mmol/L (22-30); Chloride 103 mmol/L (98-107); Estimated Creatinine Clearance > 125 ml/min; Lipase 306 U/L (23-300); Magnesium 1.8 mg/dl (1.6-2.3); Phosphorus 3.5 mg/dl (2.5-4.5); Potassium 3.9 mmol/L (3.5-5.1); Sodium 135 mmol/L (135-145); Total Bilirubin 1.2 mg/dl (0.2-1.3); Total Protein 5.7 g/dl (6.3-8.2); eGFR > 60.00
[2024-01-08 07:05] VITALS: BP 138/97
[2024-01-08 07:13] LABS: AST (SGOT) 22 U/L (17-59); Glucose 91 mg/dl (70-99)
--- NOTE | 2024-01-08 07:18 | W.PN.HOSP.TC ---
Today's Communication/Plan
-
cont low residue low fat diet as tolerated
pain control switched to oral ibuprofen oxycodone, IV dilaudid remains available if oral pain control is not sufficient
Possible discharge tomorrow if symptoms continue to improve
Assessment / Plan
Assessment / Plan
Physical Exam
General: no acute distress appears comfortable
HEENT: NormoCephalic, Anicteric and Moist mucous membranes
Respiratory: Clear; No Wheezes, Rales or Rhonchi
Cardiac: S1/S2 and Regular Rhythm
GI: Soft Tender decreased bowel sounds
Musculoskeletal: No Cyanosis
Skin: Warm, Dry, extensively tattooed skin
Neuro: AO x 3 and Nonfocal/grossly intact
Psych: Calm
Acute pancreatitis with clinical , biochemical and CT evidence
Provoked by likely ETOH Less likely gallstone
Hyperlipidemia
Nl LFTs
- LR IVF 250 cc/H completed
- pain medications adjusted Tylenol scheduled, IV pain meds Toradol Dilaudid converted to oral ibuprofen mod severe pain, oxycodone severe breakthrough pain, Dilaudid remains available if pain control is not sufficient with oxycodone.
- IV Anti emetics PRN
- ETOH abstinence advised
- KOLBY neg
-Lipid panel appreciated Hyperlipidemia, low fat diet recommended
- GI consult appreciated since signed off
-diet gradually advanced to low residue low fat pain improving though not resolved
CT Abd/pelvis W Iv Cont
1. Acute interstitial edematous pancreatitis without overt complication.
2. Possible cholelithiasis.
US Abd limited
1. No sonographic evidence for cholelithiasis or biliary obstruction.
2. Acute pancreatitis.
DVT Px: SCD
Code: Full code
IP MS
discussed with patient and patient's sister Shannan [phone]
I spent a total of 50 minutes with the patient or on the floor. More than 50% of this time involved counseling and coordination of care.
Anticipated Discharge: Within 24 hours
Subjective/Interval History
-
Date of Service: January 08, 2024
Pain improving though not resolved. Tolerated low residue diet to an extent.
Objective Data
-
Labs:
Laboratory Results
01/08/24
06:00
WBC 9.2
Hgb 12.0 L
Hct 34.0 L
Plt Count 152
Sodium 135
Potassium 3.9
Chloride 103
Carbon Dioxide 27
BUN 10
Creatinine 0.7
Glucose 91
Calcium 8.5
Total Bilirubin 1.2
AST 22
ALT 13
Alkaline Phosphatase 64
Vital Signs:
Vital Signs
Temp Pulse Resp BP Pulse Ox
99.3 F 86 18 142/97 96
01/07/24 23:21 01/07/24 23:21 01/07/24 23:21 01/07/24 23:21 01/07/24 23:21
I&O
01/07/24 01/08/24 01/09/24
06:59 06:59 06:59
Intake Total 5035 / 5035 3670 / 3670
Balance 5035 / 5035 3670 / 3670
[2024-01-08] MEDS: TYLENOL 1000 MG PO ×3 (09:16→21:01)
[2024-01-08] MEDS: PROTONIX IV 40 MG IV (09:16)
[2024-01-08] MEDS: NSS (PRESERVATIVE FREE) 10 ML IV (09:16)
--- NOTE | 2024-01-08 10:38 | CM ---
Patient seen at bedside. Plan is for home with family, no needs anticipated. Father intrested in possible VN if recommended. CM will continue to follow for discharge planning needs.
Plan; home with no needs vs home with VN
[2024-01-08] MEDS: ROXICODONE 10 MG PO (13:17)
[2024-01-08 15:05] VITALS: BP 135/101
[2024-01-08] MEDS: MOTRIN 400 MG PO (22:35)
[2024-01-08 23:26] VITALS: BP 145/104
[2024-01-09] MEDS: ROXICODONE 10 MG PO (03:33)
[2024-01-09 06:00] VITALS: BMI 19.2
[2024-01-09 06:50] LABS: Hematocrit 35.5 % (39.0-52.0); Hemoglobin 12.4 g/dL (13.0-18.0); Mean Corp Hgb Conc. 34.9 g/dL (33.0-37.0); Mean Corpuscular Hgb 30.5 pg (27.0-31.0); Mean Corpuscular Volume 87.2 fL (80.0-94.0); Mean Platelet Volume 10.8 fL (7.4-10.4); Platelet Count 199 10^3/uL (130-400); Red Blood Cell Count 4.07 10^6/uL (4.70-6.10); Red Cell Dist. Width 12.9 % (11.5-14.5); White Blood Cell Count 9.5 10^3/uL (4.8-10.8)
[2024-01-09 07:08] LABS: ALT (SGPT) 34 U/L (0-50); AST (SGOT) 46 U/L (17-59); Albumin 3.2 g/dl (3.5-5.0); Alkaline Phosphatase 91 U/L (38-126); Blood Urea Nitrogen 14 mg/dl (9-20); Calcium 8.5 mg/dl (8.4-10.2); Carbon Dioxide 26 mmol/L (22-30); Chloride 103 mmol/L (98-107); Estimated Creatinine Clearance > 125 ml/min; Glucose 99 mg/dl (70-99); Magnesium 1.9 mg/dl (1.6-2.3); Phosphorus 3.8 mg/dl (2.5-4.5); Potassium 3.9 mmol/L (3.5-5.1); Sodium 136 mmol/L (135-145); Total Bilirubin 1.2 mg/dl (0.2-1.3); eGFR > 60.00
[2024-01-09 07:18] VITALS: BP 138/92
[2024-01-09] MEDS: PROTONIX IV 40 MG IV (07:42)
[2024-01-09] MEDS: NSS (PRESERVATIVE FREE) 10 ML IV (07:42)
[2024-01-09] MEDS: TYLENOL 1000 MG PO (07:42)
--- NOTE | 2024-01-09 11:06 | W.PN.HOSP.TC ---
Today's Communication/Plan
-
dc home
low fat diet
Assessment / Plan
Assessment / Plan
Physical Exam
General: no acute distress appears comfortable
HEENT: NormoCephalic, Anicteric and Moist mucous membranes
Respiratory: Clear; No Wheezes, Rales or Rhonchi
Cardiac: S1/S2 and Regular Rhythm
GI: Soft Tender decreased bowel sounds
Musculoskeletal: No Cyanosis
Skin: Warm, Dry, extensively tattooed skin
Neuro: AO x 3 and Nonfocal/grossly intact
Psych: Calm
Acute interstitial pancreatitis
Hyperlipidemia
Nl LFTs
- LR IVF 250 cc/H completed
- pain medications adjusted Tylenol as needed
-DC IV Anti emetics PRN
- ETOH abstinence advised
- KOLBY neg
-Lipid panel appreciated Hyperlipidemia, low fat diet recommended
- GI consult appreciated since signed off
-Diet advanced and tolerating. Abdominal pain resolved. no nausea or vomiting.
CT Abd/pelvis W Iv Cont
1. Acute interstitial edematous pancreatitis without overt complication.
2. Possible cholelithiasis.
US Abd limited
1. No sonographic evidence for cholelithiasis or biliary obstruction.
2. Acute pancreatitis.
DVT Px: SCD
Code: Full code
Dipso-home. OP GI f/u.
More than 30 minutes spent in discharge including
Final examination of the patient
Summarizing hospital stay
Instructions for continuing care to all relevant caregivers
Preparation of discharge records, prescriptions, and referral forms
Total time spent (in minutes): 52
Anticipated Discharge: Today
Subjective/Interval History
-
Date of Service: January 09, 2024
tolerating diet
Objective Data
-
Labs:
Laboratory Results
01/09/24
06:26
WBC 9.5
Hgb 12.4 L
Hct 35.5 L
Plt Count 199 D
Sodium 136
Potassium 3.9
Chloride 103
Carbon Dioxide 26
BUN 14
Creatinine 0.7
Glucose 99
Calcium 8.5
Total Bilirubin 1.2
AST 46
ALT 34
Alkaline Phosphatase 91
Vital Signs:
Vital Signs
Temp Pulse Resp BP Pulse Ox
98.7 F 81 22 138/92 95
01/09/24 07:18 01/09/24 07:18 01/09/24 07:18 01/09/24 07:18 01/09/24 08:41
I&O
01/08/24 01/09/24 01/10/24
06:59 06:59 06:59
Intake Total 3670 / 3670 480 / 480
Balance 3670 / 3670 480 / 480
--- NOTE | 2024-01-09 11:11 | W.DCSUMMARY ---
Discharge Summary
Discharge Data
Date of Admission: 01/04/24
Date of Discharge: 01/09/24
-
Pending Results: No
Hospital Course
38-year-old male with no significant past medical history presented to the hospital with complaints of abdominal pain. Patient was found to be severely elevated lipase. CT abdomen pelvis was positive for acute interstitial edematous pancreatitis
without overt complications. Possible cholelithiasis. Abdominal ultrasound with no sonographic evidence for gallstones or biliary obstruction. Acute pancreatitis. Patient was kept NPO. Patient was started aggressive IV fluid resuscitation. It
was suspected due to alcohol intake causing pancreatitis. KOLBY was negative. Normal LFTs. Gastroenterology was consulted. Aggressive IV fluid resuscitation including LR 250 cc was initiated and was then discontinued as patient was tolerating
diet. Pain controlled with IV and p.o. medication. Antinausea meds were given. Patient was tolerating diet. GI signed off. Recommend outpatient follow-up with GI.
Discharge Plan
-
Patient Disposition: Home (Routine Discharge)
Discharge Diagnosis/Procedures: Acute interstitial pancreatitis
Condition: Fair
Diet: Low Fat
Activity: As tolerated
Referrals:
Lori Stoddard MD [Active] - in one to two months
PRIVATE,PHYSICIAN [Family Provider] - in less than 1 week
Prescriptions:
New
acetaminophen [Tylenol Extra Strength] 500 mg Tablet
1,000 mg PO TID PRN (Reason: Pain) 7 Days Qty: 2 0RF
Discharge Orders:
Discharge Patient (As Directed); Ordered 01/09/24
Ordered By: Philip oJlly
Discharge Date and Time
Discharge Date/Time: 01/09/24 12:33
Print Language: LAO
--- NOTE | 2024-01-09 11:54 | PTCARENOTE ---
Reviewed discharge instructions with patient. Reviewed education sheets on pancreatitis and low residue diet. Reviewed follow up recommendations. Obtained disc of imaging - CT scan and US and gave to patient. Assisted patient with medical records
release for primary care doctor and self. Patient verbalize understanding of all teaching. Questions answered. Denies complaints at this time. Peripheral IV removed and patient will call for transportation home.
--- NOTE | 2024-01-09 12:10 | CM ---
Addendum entered by Kyra Caldwell 01/09/24 12:19:
Cm spoke with [facility] Coord[facility]; Pt does not have skilled needs and is (I) amb and adl's, does not qualify for home health services.
Original Note:
Aidan is being discharged to home today. He is agreeable to VN and [facility] was his choice. VN RN Coordinator notified of same.
Aidan was advised that he would receive a call from [facility] to arrange a visit.
Plan: Discharge to home today with [facility].
PCP: Dr. Joseph, [facility]
Pharm: [facility] in [place] ([facility])
[2024-01-09 12:16] VITALS: BP 136/82
== END 2024-01-09 12:33 | disposition home or self-care (01) | DRG 440 ==
LOC: 4 EAST ACU 05:49
PROVIDERS: Internal Medicine; ADMITTING PHYSICIAN Internal Medicine; ATTENDING PHYSICIAN Hospitalist; CONSULT PHYSICIAN Internal Medicine Gastroenterology; EMERGENCY PHYSICIAN Student in an Organized Health Care Education/Training Program
DX: K85.20 Alcohol induced acute pancreatitis without necrosis or infection (principal); K80.20 Calculus of gallbladder without cholecystitis without obstruction; F90.9 Attention-deficit hyperactivity disorder, unspecified type; E78.5 Hyperlipidemia, unspecified; F10.90 Alcohol use, unspecified, uncomplicated; Z87.891 Personal history of nicotine dependence
CPT/HCPCS: 74177; 76705; 80053; 80061; 82787; 82977; 83690; 83735; 84100; 85025; 85027; 86038; 93005; 96374; 96375; 99285; Q9967